=== PATIENT | male | born 1960 | race African-American/Black ===

== ENCOUNTER 2018-01-08 11:18 | Emergency (ER) | payer MEDICAID ==
[~2018-01-08] VITALS: Ht 175.3 cm; Wt 82.0 kg
[2018-01-08 11:23] VITALS: BP 137/72
== END 2018-01-08 14:35 | disposition home or self-care (01) ==
LOC: ER 11:18
DX: Z45.89 Encounter for adjustment and management of other implanted devices (principal)
CPT/HCPCS: 99282; Z7610; A4315

== ENCOUNTER 2019-09-07 16:01 | Emergency (ER) | payer MEDICAID ==
[~2019-09-07] VITALS: Ht 175.3 cm; Wt 80.0 kg
[2019-09-07 17:56] VITALS: BP 145/80
== END 2019-09-07 17:57 | disposition home or self-care (01) ==
LOC: ER 16:01
DX: T83.021A Displacement of indwelling urethral catheter, initial encounter (principal); N40.1 Benign prostatic hyperplasia with lower urinary tract symptoms; Y73.8 Miscellaneous gastroenterology and urology devices associated with adverse incidents, not elsewhere classified; Y92.018 Other place in single-family (private) house as the place of occurrence of the external cause
CPT/HCPCS: 51705; 99284

== ENCOUNTER 2020-02-18 15:24 | Emergency (ER) | payer MEDICAID ==
[~2020-02-18] VITALS: Ht 180.3 cm; Wt 87.0 kg
[2020-02-18 17:12] VITALS: BP 148/74
== END 2020-02-18 18:00 | disposition home or self-care (01) ==
LOC: ER 15:24
DX: Z46.6 Encounter for fitting and adjustment of urinary device (principal)
CPT/HCPCS: 99284

== ENCOUNTER 2020-04-25 16:41 | Emergency (ER) | payer MEDICAID ==
[~2020-04-25] VITALS: Ht 175.3 cm; Wt 79.0 kg
[2020-04-25 20:13] VITALS: BP 154/71
== END 2020-04-25 20:13 | disposition home or self-care (01) ==
LOC: ER 16:41
DX: T83.028A Displacement of other urinary catheter, initial encounter (principal); Y82.8 Other medical devices associated with adverse incidents; Y92.89 Other specified places as the place of occurrence of the external cause; R03.0 Elevated blood-pressure reading, without diagnosis of hypertension
CPT/HCPCS: 99283

== ENCOUNTER 2020-12-12 20:08 | Emergency (ER) | payer MEDICAID ==
[~2020-12-12] VITALS: Ht 175.3 cm; Wt 85.0 kg
[2020-12-12 20:11] VITALS: BP 154/75
== END 2020-12-12 21:00 | disposition left against medical advice (07) ==
LOC: ER 20:08
DX: Z53.21 Procedure and treatment not carried out due to patient leaving prior to being seen by health care provider (principal)

== ENCOUNTER 2021-04-16 22:04 | Emergency (ER) | payer MEDICAID ==
[~2021-04-16] VITALS: Ht 175.3 cm; Wt 79.0 kg
[~2021-04-16 22:04] MED LIST: IBUP-2029 MT; ONDA4TAB5 MT
[2021-04-16 22:27] VITALS: BP 131/77
== END 2021-04-17 00:52 | disposition home or self-care (01) ==
LOC: ER 22:04
DX: T83.018A Breakdown (mechanical) of other urinary catheter, initial encounter (principal); Y73.1 Therapeutic (nonsurgical) and rehabilitative gastroenterology and urology devices associated with adverse incidents; Y92.012 Bathroom of single-family (private) house as the place of occurrence of the external cause
CPT/HCPCS: 99281

== ENCOUNTER 2022-03-02 06:13 | Emergency (ER) | payer MEDICAID ==
[~2022-03-02] VITALS: Ht 182.9 cm; Wt 79.2 kg
[2022-03-02 06:30] VITALS: BP 150/88
[2022-03-02 07:23] LABS: BASOPHILS % 0.3 % (0.0-2.0); EOSINOPHILS % 2.6 % (0.0-5.0); HEMATOCRIT. 37.6 % (42.0-52.0); HEMOGLOBIN. 12.6 g/dL (14.0-18.0); LYMPHOCYTES % 13.1 % (20.0-50.0); MEAN CORPUSCULAR VOLUME 98.8 fL (80.0-94.0); MEAN PLATELET VOLUME 6.5 fl (7.4-10.4); PLATELET 327 x1000/uL (130-400); RED BLOOD CELL COUNT 3.81 mill/uL (4.7-6.1); RED CELL DISTRIBUTION WIDTH 14.8 % (11.6-14.6)
[2022-03-02 07:28] LABS: CHLORIDE 112 mEq/L (98-107)
[2022-03-02] MEDS ORDERED: CIPR-263 MT (07:53)
[2022-03-02 08:08] LABS: CLARITY URINE TURBID (CLEAR); COLOR URINE YELLOW (YELLOW); KETONES URINE NEGATIVE (NEGATIVE); LEUKOCYTE ESTERASE URINE 3+ (NEGATIVE); NITRITE URINE NEGATIVE (NEGATIVE); OCCULT BLOOD URINE 3+ (NEGATIVE); PH URINE 7.5 (4.5-8.0); PROTEIN URINE 3+ (NEGATIVE); SPECIFIC GRAVITY URINE 1.013 (1.005-1.030); UROBILINOGEN URINE 0.2 E.U./dL (0.2-1.0)
== END 2022-03-02 08:31 | disposition home or self-care (01) ==
LOC: ER 06:29
DX: T83.091A Other mechanical complication of indwelling urethral catheter, initial encounter (principal); Y73.8 Miscellaneous gastroenterology and urology devices associated with adverse incidents, not elsewhere classified; R03.0 Elevated blood-pressure reading, without diagnosis of hypertension; Y92.012 Bathroom of single-family (private) house as the place of occurrence of the external cause; N39.0 Urinary tract infection, site not specified
CPT/HCPCS: 36415; 80053; 81003; 85025; 99283

== ENCOUNTER 2022-06-23 11:15 | Inpatient (IN) | payer MEDICAID ==
[~2022-06-23] VITALS: Ht 175.3 cm; Wt 75.4 kg
[~2022-06-23 11:15] MED LIST changes: +CIPR-263 MT
[2022-06-23 12:37] LABS: HEMATOCRIT. 29.4 % (42.0-52.0); MEAN CORPUSCULAR HEMOGLOBIN 31.5 pg (28.0-32.0); MEAN CORPUSCULAR VOLUME 92.6 fL (80.0-94.0); MEAN PLATELET VOLUME 7.1 fl (7.4-10.4); PLATELET 303 x1000/uL (130-400); RED BLOOD CELL COUNT 3.18 mill/uL (4.7-6.1); RED CELL DISTRIBUTION WIDTH 16.3 % (11.6-14.6)
[2022-06-23 13:07] LABS: CHLORIDE 101 mEq/L (98-107)
[2022-06-23 13:21] LABS: INR 1.4; PROTHROMBIN TIME 14.8 sec (9.6-11.0)
[2022-06-23 14:44] LABS: PLATELET ESTIMATE NORMAL
[2022-06-23] MEDS ORDERED: PIPERACILLIN/TAZ 3.375G PREMIX 50 ML IV ONE (15:15)
[2022-06-23] MEDS ORDERED: VANCOMYCIN 1G PREMIX 200 ML IV ONE (15:15)
[2022-06-23] MEDS ORDERED: SODIUM CHLORIDE 0.9% 1000ML BAG (SEPSIS BOLUS) IV ONE (15:15)
[2022-06-23] MEDS ORDERED: CLINDAMYCIN 600 MG in DEXTROSE 5% WATER 50 ML IV ONE (15:45)
[2022-06-23] MEDS ORDERED: CLINDAMYCIN 600MG PREMIX 50 ML IV NR (16:00)
[2022-06-23] MEDS ORDERED: NALOXONE HCL 0.4MG/ML VIAL IV PRN (20:15)
[2022-06-23] MEDS: MORPHINE SULFATE 2 MG/ML CPJ (NOT FOR IM USE) IV PRN (20:41)
[2022-06-23] MEDS: ONDANSETRON HCL 4MG/2ML INJ IV PRN (20:41)
[2022-06-23] MEDS ORDERED: VANCOMYCIN 500MG PREMIX 100 ML IV NR (21:00)
[2022-06-23] MEDS ORDERED: SODIUM CHL 0.9% + KCL 20MEQ/L 1,000 ML IV SCH (22:00)
[2022-06-23] MEDS ORDERED: NA PHOS,M-B/NA PHOS,DI-BA ENEMA 118ML PR NR (22:00)
[2022-06-23] MEDS: PIPERACILLIN/TAZ 3.375G PREMIX 50 ML IV SCH (23:05)
[2022-06-23] MEDS: SODIUM CHL 0.9% + KCL 20MEQ/L 1,000 ML IV SCH (23:06)
[2022-06-23] MEDS ORDERED: PIPERACILLIN/TAZOBACTAM 3.375GM/50ML PREMIX IV SCH (23:25)
[2022-06-23] MEDS ORDERED: BISACODYL 10MG SUPP PR NR (23:45)
[2022-06-24] MEDS: MORPHINE SULFATE 2 MG/ML CPJ (NOT FOR IM USE) IV PRN ×3 (04:15→09:11)
[2022-06-24 04:23] VITALS: BP 135/71
[2022-06-24] MEDS: CLINDAMYCIN 300 MG PREMIX 50 ML IV SCH ×2 (05:26→17:29)
[2022-06-24] MEDS: PIPERACILLIN/TAZ 3.375G PREMIX 50 ML IV SCH (05:56)
[2022-06-24 08:00] VITALS: BP 128/79
[2022-06-24] MEDS ORDERED: CLINDAMYCIN 300 MG in DEXTROSE 5% WATER 50 ML IV SCH (09:00)
[2022-06-24] MEDS: ONDANSETRON HCL 4MG/2ML INJ IV PRN (09:10)
[2022-06-24] MEDS: SODIUM CHL 0.9% + KCL 20MEQ/L 1,000 ML IV SCH ×3 (09:12→22:39)
[2022-06-24 10:00] VITALS: BP 127/73
[2022-06-24 10:52] LABS: HEMATOCRIT. 31.7 % (42.0-52.0); HEMOGLOBIN. 10.5 g/dL (14.0-18.0); MEAN CORPUSCULAR HEMOGLOBIN 31.1 pg (28.0-32.0); MEAN CORPUSCULAR VOLUME 94.3 fL (80.0-94.0); MEAN PLATELET VOLUME 7.3 fl (7.4-10.4); PLATELET 338 x1000/uL (130-400); RED BLOOD CELL COUNT 3.36 mill/uL (4.7-6.1); RED CELL DISTRIBUTION WIDTH 16.4 % (11.6-14.6)
[2022-06-24 12:00] VITALS: BP 127/71
[2022-06-24] MEDS ORDERED: LIDOCAINE HCL 1% 10 MG/ML 10ML VIAL ONE (13:18)
[2022-06-24] MEDS ORDERED: SUCCINYLCHOLINE CHLORIDE 200MG/10ML IV ONE (13:18)
[2022-06-24] MEDS ORDERED: FENTANYL CITRATE/PF 50MCG/ML 2ML VIAL ONE (13:19)
[2022-06-24] MEDS ORDERED: PROPOFOL 200MG/20ML VIAL IV ONE (13:19)
[2022-06-24 13:31] LABS: PLATELET ESTIMATE NORMAL
[2022-06-24] MEDS ORDERED: POLYMYXIN B SULFATE 500000 UNITS/VIAL ONE (13:34)
[2022-06-24] MEDS ORDERED: VANCOMYCIN HCL 1 GM/VIAL ONE (13:34)
[2022-06-24] MEDS ORDERED: GENTAMICIN SULF 40MG/ML 2ML VIAL ONE ×2 (13:35)
[2022-06-24] MEDS ORDERED: SODIUM HYPOCHLORITE (0.25%) 480ML SOLUTION (HALF STRENGTH) TOP PRN (13:45)
[2022-06-24] MEDS ORDERED: HYDROMORPHONE HCL/PF 2MG/ML CPJ ONE (15:00)
[2022-06-24] MEDS: PIPERACILLIN/TAZOBACTAM 3.375 G in DEXTROSE 5% WATER 50 ML IV SCH (19:43)
[2022-06-24 20:00] VITALS: BP 123/75
[2022-06-24 20:15] VITALS: BP 123/75
[2022-06-24] MEDS ORDERED: VANCOMYCIN 500MG PREMIX 100 ML IV NR (21:00)
[2022-06-24 21:53] LABS: CLARITY URINE TURBID (CLEAR); COLOR URINE ORANGE (YELLOW); KETONES URINE NEGATIVE (NEGATIVE); LEUKOCYTE ESTERASE URINE 3+ (NEGATIVE); NITRITE URINE NEGATIVE (NEGATIVE); OCCULT BLOOD URINE 3+ (NEGATIVE); PH URINE 8.5 (4.5-8.0); PROTEIN URINE 3+ (NEGATIVE); SPECIFIC GRAVITY URINE 1.014 (1.005-1.030)
[2022-06-24 22:12] LABS: *AMPHETAMINES SCREEN URINE NEGATIVE (NEGATIVE); *BARBITURATES SCREEN URINE NEGATIVE (NEGATIVE); *BENZODIAZEPINES SCREEN URINE NEGATIVE (NEGATIVE); *COCAINE SCREEN URINE PRESUMTIVE POSITIVE (NEGATIVE); CANNABINOID URINE SCREEN NEGATIVE (NEGATIVE); METHADONE URINE SCREEN NEGATIVE (NEGATIVE); OPIATES URINE SCREEN PRESUMTIVE POSITIVE (NEGATIVE); PHENCYCLIDINE URINE SCREEN NEGATIVE (NEGATIVE)
[2022-06-25] VITALS: BP 130/79
[2022-06-25 04:00] VITALS: BP 117/74
[2022-06-25] MEDS: CLINDAMYCIN 300 MG PREMIX 50 ML IV SCH (05:50)
[2022-06-25] MEDS: SODIUM CHL 0.9% + KCL 20MEQ/L 1,000 ML IV SCH (05:50)
[2022-06-25 06:20] LABS: HEMATOCRIT. 26.2 % (42.0-52.0); HEMOGLOBIN. 8.7 g/dL (14.0-18.0); MEAN CORPUSCULAR HEMOGLOBIN 31.4 pg (28.0-32.0); MEAN CORPUSCULAR VOLUME 93.9 fL (80.0-94.0); MEAN PLATELET VOLUME 7.3 fl (7.4-10.4); PLATELET 337 x1000/uL (130-400); RED BLOOD CELL COUNT 2.79 mill/uL (4.7-6.1); RED CELL DISTRIBUTION WIDTH 16.2 % (11.6-14.6)
[2022-06-25 08:00] VITALS: BP 136/86
[2022-06-25] MEDS: PIPERACILLIN/TAZOBACTAM 3.375 G in DEXTROSE 5% WATER 50 ML IV SCH ×2 (08:47→21:12)
[2022-06-25 12:00] VITALS: BP 132/77
[2022-06-25] MEDS: SODIUM CHLORIDE 0.45% 1,000 ML IV SCH (13:44)
[2022-06-25 15:26] LABS: PLATELET ESTIMATE NORMAL
[2022-06-25 16:00] VITALS: BP 148/74
[2022-06-25 20:00] VITALS: BP 137/80
[2022-06-25] MEDS: MORPHINE SULFATE 2 MG/ML CPJ (NOT FOR IM USE) IV PRN (20:29)
[2022-06-25] MEDS: CLINDAMYCIN 600MG PREMIX 50 ML IV SCH (20:30)
[2022-06-26] VITALS: BP 124/74
[2022-06-26] MEDS: SODIUM CHLORIDE 0.45% 1,000 ML IV SCH ×2 (03:00→14:58)
[2022-06-26] MEDS: MORPHINE SULFATE 2 MG/ML CPJ (NOT FOR IM USE) IV PRN ×3 (03:07→22:24)
[2022-06-26 04:00] VITALS: BP 153/85
[2022-06-26] MEDS: CLINDAMYCIN 600MG PREMIX 50 ML IV SCH ×2 (05:40→13:22)
[2022-06-26 06:48] LABS: HEMATOCRIT. 25.2 % (42.0-52.0); HEMOGLOBIN. 8.4 g/dL (14.0-18.0); MEAN CORPUSCULAR HEMOGLOBIN 31.1 pg (28.0-32.0); MEAN CORPUSCULAR VOLUME 93.8 fL (80.0-94.0); MEAN PLATELET VOLUME 7.5 fl (7.4-10.4); PLATELET 346 x1000/uL (130-400); RED BLOOD CELL COUNT 2.69 mill/uL (4.7-6.1); RED CELL DISTRIBUTION WIDTH 16.5 % (11.6-14.6)
[2022-06-26 08:00] VITALS: BP 134/79
[2022-06-26 09:37] LABS: CREATINE KINASE 18 IU/L (39-308)
[2022-06-26] MEDS ORDERED: VANCOMYCIN 750MG PREMIX 150 ML IV SCH (10:00)
[2022-06-26] MEDS: PIPERACILLIN/TAZOBACTAM 3.375 G in DEXTROSE 5% WATER 50 ML IV SCH ×2 (10:29→22:57)
[2022-06-26] MEDS: SODIUM BICARBONATE 650 MG TABLET PO SCH ×3 (10:30→16:38)
[2022-06-26 12:00] VITALS: BP 149/80
[2022-06-26 14:29] LABS: PLATELET ESTIMATE NORMAL
[2022-06-26 16:00] VITALS: BP 139/79
[2022-06-26 20:00] VITALS: BP 143/80
[2022-06-26] MEDS: SODIUM HYPOCHLORITE (0.25%) 480ML SOLUTION (HALF STRENGTH) TOP SCH (22:24)
[2022-06-27] VITALS: BP 133/84
[2022-06-27 04:00] VITALS: BP 152/84
[2022-06-27] MEDS: SODIUM CHLORIDE 0.45% 1,000 ML IV SCH ×2 (06:00→16:58)
[2022-06-27 08:20] VITALS: BP 131/85
[2022-06-27 09:37] LABS: HEMATOCRIT. 26.3 % (42.0-52.0); HEMOGLOBIN. 8.9 g/dL (14.0-18.0); MEAN CORPUSCULAR HEMOGLOBIN 31.4 pg (28.0-32.0); MEAN PLATELET VOLUME 7.5 fl (7.4-10.4); PLATELET 445 x1000/uL (130-400); RED BLOOD CELL COUNT 2.83 mill/uL (4.7-6.1); RED CELL DISTRIBUTION WIDTH 16.7 % (11.6-14.6)
[2022-06-27 09:41] LABS: PLATELET ESTIMATE SLIGHTLY INCREASED
[2022-06-27] MEDS: SODIUM BICARBONATE 650 MG TABLET PO SCH ×3 (09:57→16:57)
[2022-06-27] MEDS: PIPERACILLIN/TAZOBACTAM 3.375 G in DEXTROSE 5% WATER 50 ML IV SCH ×2 (09:57→20:51)
[2022-06-27] MEDS: SODIUM HYPOCHLORITE (0.25%) 480ML SOLUTION (HALF STRENGTH) TOP SCH ×2 (09:58→20:51)
[2022-06-27] MEDS: MORPHINE SULFATE 2 MG/ML CPJ (NOT FOR IM USE) IV PRN (09:59)
[2022-06-27 12:09] VITALS: BP 134/79
[2022-06-27 16:00] VITALS: BP 134/93
[2022-06-27 20:00] VITALS: BP 146/82
[2022-06-28] VITALS: BP 150/83
[2022-06-28 04:00] VITALS: BP 140/79
[2022-06-28 06:45] LABS: BASOPHILS % 0.2 % (0.0-2.0); EOSINOPHILS % 1.9 % (0.0-5.0); HEMATOCRIT. 24.6 % (42.0-52.0); HEMOGLOBIN. 8.3 g/dL (14.0-18.0); LYMPHOCYTES % 7.7 % (20.0-50.0); MEAN CORPUSCULAR HEMOGLOBIN 31.3 pg (28.0-32.0); MEAN CORPUSCULAR VOLUME 92.8 fL (80.0-94.0); MEAN PLATELET VOLUME 7.6 fl (7.4-10.4); MONOCYTES % 7.8 % (2.0-8.0); NEUTROPHILS % 82.4 % (40.0-76.0); PLATELET 494 x1000/uL (130-400); RED BLOOD CELL COUNT 2.65 mill/uL (4.7-6.1); RED CELL DISTRIBUTION WIDTH 16.2 % (11.6-14.6)
[2022-06-28 08:00] VITALS: BP 141/87
[2022-06-28] MEDS: SODIUM BICARBONATE 650 MG TABLET PO SCH ×3 (09:43→17:20)
[2022-06-28] MEDS: PIPERACILLIN/TAZOBACTAM 3.375 G in DEXTROSE 5% WATER 50 ML IV SCH ×2 (09:43→21:01)
[2022-06-28] MEDS: SODIUM CHLORIDE 0.45% 1,000 ML IV SCH ×2 (09:45→21:00)
[2022-06-28] MEDS: SODIUM HYPOCHLORITE (0.25%) 480ML SOLUTION (HALF STRENGTH) TOP SCH ×2 (09:54→21:39)
[2022-06-28] MEDS ORDERED: DOCUSATE SODIUM 250MG CAPSULE PO SCH (11:15)
[2022-06-28 12:00] VITALS: BP 146/79
[2022-06-28] MEDS ORDERED: VANCOMYCIN 750MG PREMIX 150 ML IV SCH (12:00)
[2022-06-28] MEDS: MORPHINE SULFATE 2 MG/ML CPJ (NOT FOR IM USE) IV PRN ×2 (13:43→19:32)
[2022-06-28 16:00] VITALS: BP 139/89
[2022-06-28] MEDS ORDERED: SENNOSIDES 8.6MG TABLET PO PRN (19:15)
[2022-06-28 20:00] VITALS: BP 141/83
[2022-06-29] VITALS: BP 130/75
[2022-06-29] MEDS: PHENYLEPH/PRAMOXIN/GLYCR/PET RECTAL CREAM 26GM PR SCH ×4 (00:51→17:08)
[2022-06-29 04:00] VITALS: BP 129/72
[2022-06-29 07:47] LABS: BASOPHILS % 0.2 % (0.0-2.0); EOSINOPHILS % 2.3 % (0.0-5.0); HEMATOCRIT. 25.7 % (42.0-52.0); HEMOGLOBIN. 8.5 g/dL (14.0-18.0); LYMPHOCYTES % 7.9 % (20.0-50.0); MEAN CORPUSCULAR HEMOGLOBIN 30.8 pg (28.0-32.0); MEAN CORPUSCULAR VOLUME 93.2 fL (80.0-94.0); MEAN PLATELET VOLUME 7.5 fl (7.4-10.4); MONOCYTES % 7.3 % (2.0-8.0); NEUTROPHILS % 82.3 % (40.0-76.0); PLATELET 638 x1000/uL (130-400); RED BLOOD CELL COUNT 2.76 mill/uL (4.7-6.1); RED CELL DISTRIBUTION WIDTH 16.7 % (11.6-14.6)
[2022-06-29 08:00] VITALS: BP 127/83
[2022-06-29] MEDS: SODIUM BICARBONATE 650 MG TABLET PO SCH ×3 (09:51→17:07)
[2022-06-29] MEDS: PIPERACILLIN/TAZOBACTAM 3.375 G in DEXTROSE 5% WATER 50 ML IV SCH ×2 (09:51→20:35)
[2022-06-29] MEDS: DOCUSATE SODIUM 250MG CAPSULE PO SCH (09:51)
[2022-06-29] MEDS: SODIUM CHLORIDE 0.45% 1,000 ML IV SCH ×2 (09:52→23:40)
[2022-06-29] MEDS: SODIUM HYPOCHLORITE (0.25%) 480ML SOLUTION (HALF STRENGTH) TOP SCH ×2 (09:53→20:36)
[2022-06-29] MEDS ORDERED: SODIUM POLYSTYRENE SULFONATE 15 G/60 ML BOT PO NR (11:10)
[2022-06-29 12:00] VITALS: BP 140/85
[2022-06-29 16:00] VITALS: BP 128/74
[2022-06-29 20:00] VITALS: BP 135/73
[2022-06-30] VITALS: BP 134/68
[2022-06-30] MEDS: PHENYLEPH/PRAMOXIN/GLYCR/PET RECTAL CREAM 26GM PR SCH ×5 (00:14→23:49)
[2022-06-30 04:00] VITALS: BP 118/64
[2022-06-30 08:00] VITALS: BP 134/64
[2022-06-30] MEDS ORDERED: VANCOMYCIN 750MG PREMIX 150 ML IV SCH ×2 (09:00→11:00)
[2022-06-30] MEDS: DOCUSATE SODIUM 250MG CAPSULE PO SCH (09:55)
[2022-06-30] MEDS: SODIUM BICARBONATE 650 MG TABLET PO SCH ×3 (09:55→17:58)
[2022-06-30] MEDS: SODIUM HYPOCHLORITE (0.25%) 480ML SOLUTION (HALF STRENGTH) TOP SCH ×2 (10:42→21:29)
[2022-06-30] MEDS: PIPERACILLIN/TAZOBACTAM 3.375 G in DEXTROSE 5% WATER 50 ML IV SCH ×2 (10:42→21:29)
[2022-06-30 12:00] VITALS: BP 127/76
[2022-06-30] MEDS ORDERED: NALOXONE HCL 0.4MG/ML VIAL IV PRN (12:45)
[2022-06-30] MEDS: HYDROCODONE/ACETAMINOPHEN 10/325MG TABLET PO PRN (13:29)
[2022-06-30 16:00] VITALS: BP 124/71
[2022-06-30] MEDS ORDERED: HYDROCORTISONE ACETATE 25MG SUPP PR SCH (17:00)
[2022-06-30] MEDS: SODIUM CHLORIDE 0.45% 1,000 ML IV SCH (17:58)
[2022-06-30 20:00] VITALS: BP 113/74
[2022-07-01] VITALS: BP 133/71
[2022-07-01 04:00] VITALS: BP 126/72
[2022-07-01] MEDS: PHENYLEPH/PRAMOXIN/GLYCR/PET RECTAL CREAM 26GM PR SCH ×4 (05:15→23:40)
[2022-07-01 06:13] LABS: BASOPHILS % 0.4 % (0.0-2.0); EOSINOPHILS % 2.3 % (0.0-5.0); HEMATOCRIT. 22.3 % (42.0-52.0); HEMOGLOBIN. 7.3 g/dL (14.0-18.0); LYMPHOCYTES % 9.1 % (20.0-50.0); MEAN CORPUSCULAR HEMOGLOBIN 30.6 pg (28.0-32.0); MEAN CORPUSCULAR VOLUME 93.7 fL (80.0-94.0); MEAN PLATELET VOLUME 7.3 fl (7.4-10.4); MONOCYTES % 6.2 % (2.0-8.0); PLATELET 687 x1000/uL (130-400); RED BLOOD CELL COUNT 2.38 mill/uL (4.7-6.1); RED CELL DISTRIBUTION WIDTH 16.7 % (11.6-14.6)
[2022-07-01 08:00] VITALS: BP 106/70
[2022-07-01] MEDS: PIPERACILLIN/TAZOBACTAM 3.375 G in DEXTROSE 5% WATER 50 ML IV SCH (09:26)
[2022-07-01] MEDS: DOCUSATE SODIUM 250MG CAPSULE PO SCH (09:26)
[2022-07-01] MEDS: SODIUM HYPOCHLORITE (0.25%) 480ML SOLUTION (HALF STRENGTH) TOP SCH ×2 (09:27→21:36)
[2022-07-01] MEDS: HYDROCODONE/ACETAMINOPHEN 10/325MG TABLET PO PRN ×2 (09:42→18:36)
[2022-07-01 12:22] VITALS: BP 115/70
[2022-07-01] MEDS ORDERED: VANCOMYCIN 500MG PREMIX 100 ML IV SCH (16:00)
[2022-07-01 16:05] VITALS: BP 128/74
[2022-07-01] MEDS: SODIUM CHLORIDE 0.45% 1,000 ML IV SCH (16:25)
[2022-07-01 18:15] LABS: HEMATOCRIT 23.8 % (42.0-52.0); HEMOGLOBIN 7.8 g/dL (14.0-18.0)
[2022-07-01 20:00] VITALS: BP 119/65
[2022-07-01] MEDS: AMPICILLIN SOD/SULBACTAM NA 3 G in SODIUM CHLORIDE 0.9% 100 ML IV SCH (20:06)
[2022-07-02] VITALS: BP 142/83
[2022-07-02] MEDS: HYDROCODONE/ACETAMINOPHEN 10/325MG TABLET PO PRN ×2 (01:10→17:23)
[2022-07-02 04:00] VITALS: BP 118/55
[2022-07-02] MEDS: AMPICILLIN SOD/SULBACTAM NA 3 G in SODIUM CHLORIDE 0.9% 100 ML IV SCH ×2 (05:05→17:20)
[2022-07-02] MEDS: SODIUM CHLORIDE 0.45% 1,000 ML IV SCH ×2 (05:05→17:20)
[2022-07-02] MEDS: PHENYLEPH/PRAMOXIN/GLYCR/PET RECTAL CREAM 26GM PR SCH ×3 (05:05→17:20)
[2022-07-02 06:58] LABS: BASOPHILS % 0.6 % (0.0-2.0); EOSINOPHILS % 2.3 % (0.0-5.0); HEMATOCRIT. 21.4 % (42.0-52.0); HEMOGLOBIN. 7.3 g/dL (14.0-18.0); LYMPHOCYTES % 9.9 % (20.0-50.0); MEAN CORPUSCULAR HEMOGLOBIN 31.6 pg (28.0-32.0); MEAN CORPUSCULAR VOLUME 93.3 fL (80.0-94.0); MEAN PLATELET VOLUME 6.9 fl (7.4-10.4); MONOCYTES % 5.8 % (2.0-8.0); NEUTROPHILS % 81.4 % (40.0-76.0); PLATELET 719 x1000/uL (130-400); RED CELL DISTRIBUTION WIDTH 16.6 % (11.6-14.6)
[2022-07-02 07:08] LABS: PHOSPHORUS 5.1 mg/dL (2.5-4.9)
[2022-07-02 08:00] VITALS: BP 107/56
[2022-07-02] MEDS: SODIUM HYPOCHLORITE (0.25%) 480ML SOLUTION (HALF STRENGTH) TOP SCH ×2 (09:00→22:34)
[2022-07-02] MEDS: DOCUSATE SODIUM 250MG CAPSULE PO SCH (09:00)
[2022-07-02 12:00] VITALS: BP 139/78
[2022-07-02 16:00] VITALS: BP 135/79
[2022-07-02 17:18] LABS: CREATINE KINASE 40 IU/L (39-308)
[2022-07-02 20:00] VITALS: BP 125/70
[2022-07-03] VITALS: BP 134/77
[2022-07-03] MEDS: PHENYLEPH/PRAMOXIN/GLYCR/PET RECTAL CREAM 26GM PR SCH ×4 (00:48→17:46)
[2022-07-03] MEDS: HYDROCODONE/ACETAMINOPHEN 10/325MG TABLET PO PRN ×3 (00:48→13:41)
[2022-07-03 04:00] VITALS: BP_SYST 132; BP_SYST 147; BP_DIAS 62; BP_DIAS 70
[2022-07-03] MEDS: AMPICILLIN SOD/SULBACTAM NA 3 G in SODIUM CHLORIDE 0.9% 100 ML IV SCH ×2 (04:51→17:46)
[2022-07-03 06:49] LABS: BASOPHILS % 1.1 % (0.0-2.0); EOSINOPHILS % 3.7 % (0.0-5.0); HEMATOCRIT. 22.7 % (42.0-52.0); HEMOGLOBIN. 7.5 g/dL (14.0-18.0); LYMPHOCYTES % 11.9 % (20.0-50.0); MEAN CORPUSCULAR VOLUME 93.5 fL (80.0-94.0); MEAN PLATELET VOLUME 7.2 fl (7.4-10.4); NEUTROPHILS % 77.3 % (40.0-76.0); PLATELET 787 x1000/uL (130-400); RED BLOOD CELL COUNT 2.43 mill/uL (4.7-6.1); RED CELL DISTRIBUTION WIDTH 16.7 % (11.6-14.6)
[2022-07-03 08:00] VITALS: BP 111/58
[2022-07-03] MEDS: DOCUSATE SODIUM 250MG CAPSULE PO SCH (09:18)
[2022-07-03] MEDS: SODIUM CHLORIDE 0.45% 1,000 ML IV SCH ×2 (09:18→20:42)
[2022-07-03] MEDS: SODIUM HYPOCHLORITE (0.25%) 480ML SOLUTION (HALF STRENGTH) TOP SCH ×2 (09:19→20:41)
[2022-07-03] MEDS: VANCOMYCIN 500MG PREMIX 100 ML IV SCH (09:52)
[2022-07-03 12:00] VITALS: BP 104/58
[2022-07-03] MEDS ORDERED: LIDOCAINE HCL 2% JELLY 5ML TOP NR (14:30)
[2022-07-03 16:00] VITALS: BP 108/58
[2022-07-03 20:00] VITALS: BP 129/76
[2022-07-04] VITALS: BP 107/52
[2022-07-04] MEDS: HYDROCODONE/ACETAMINOPHEN 10/325MG TABLET PO PRN ×2 (00:38→16:13)
[2022-07-04 04:00] VITALS: BP 132/82
[2022-07-04] MEDS: PHENYLEPH/PRAMOXIN/GLYCR/PET RECTAL CREAM 26GM PR SCH ×4 (05:45→17:02)
[2022-07-04] MEDS: AMPICILLIN SOD/SULBACTAM NA 3 G in SODIUM CHLORIDE 0.9% 100 ML IV SCH ×2 (05:45→17:03)
[2022-07-04 08:00] VITALS: BP 140/83
[2022-07-04] MEDS ORDERED: LIDOCAINE HCL/PF 1% 10 MG/ML 5ML VIAL ONE (08:18)
[2022-07-04] MEDS: DOCUSATE SODIUM 250MG CAPSULE PO SCH (09:45)
[2022-07-04] MEDS: SODIUM HYPOCHLORITE (0.25%) 480ML SOLUTION (HALF STRENGTH) TOP SCH (09:45)
[2022-07-04] MEDS: SODIUM CHLORIDE 0.45% 1,000 ML IV SCH (09:46)
[2022-07-04 12:00] VITALS: BP 134/67
[2022-07-04 16:00] VITALS: BP 144/79
[2022-07-04] MEDS: HYDROCORTISONE ACETATE 25MG SUPP PR PRN (17:03)
[2022-07-04 18:05] LABS: BASOPHILS % 1.1 % (0.0-2.0); EOSINOPHILS % 4.6 % (0.0-5.0); LYMPHOCYTES % 13.4 % (20.0-50.0); MEAN CORPUSCULAR HEMOGLOBIN 31.7 pg (28.0-32.0); MEAN CORPUSCULAR VOLUME 94.3 fL (80.0-94.0); MEAN PLATELET VOLUME 7.1 fl (7.4-10.4); MONOCYTES % 5.7 % (2.0-8.0); NEUTROPHILS % 75.2 % (40.0-76.0); PLATELET 739 x1000/uL (130-400); RED CELL DISTRIBUTION WIDTH 16.4 % (11.6-14.6)
[2022-07-04 18:13] LABS: HEMATOCRIT. 20.8 % (42.0-52.0)
[2022-07-04 20:00] VITALS: BP 145/80
[2022-07-05] VITALS (10 sets, daily range): BP systolic 119–151; BP diastolic 70–89
[2022-07-05] MEDS: VANCOMYCIN 500MG PREMIX 100 ML IV SCH (00:47)
[2022-07-05] MEDS: SODIUM CHLORIDE 0.45% 1,000 ML IV SCH ×2 (00:47→12:05)
[2022-07-05] MEDS: PHENYLEPH/PRAMOXIN/GLYCR/PET RECTAL CREAM 26GM PR SCH ×4 (00:48→17:38)
[2022-07-05] MEDS: SODIUM HYPOCHLORITE (0.25%) 480ML SOLUTION (HALF STRENGTH) TOP SCH ×3 (00:48→20:24)
[2022-07-05] MEDS: AMPICILLIN SOD/SULBACTAM NA 3 G in SODIUM CHLORIDE 0.9% 100 ML IV SCH ×2 (06:18→16:40)
[2022-07-05] MEDS: HYDROCODONE/ACETAMINOPHEN 10/325MG TABLET PO PRN ×2 (06:29→16:41)
[2022-07-05 07:29] LABS: BASOPHILS % 1.8 % (0.0-2.0); EOSINOPHILS % 4.7 % (0.0-5.0); LYMPHOCYTES % 18.4 % (20.0-50.0); MEAN CORPUSCULAR HEMOGLOBIN 31.9 pg (28.0-32.0); MEAN CORPUSCULAR VOLUME 93.8 fL (80.0-94.0); MEAN PLATELET VOLUME 6.8 fl (7.4-10.4); MONOCYTES % 6.6 % (2.0-8.0); NEUTROPHILS % 68.5 % (40.0-76.0); PLATELET 711 x1000/uL (130-400); RED BLOOD CELL COUNT 2.21 mill/uL (4.7-6.1)
[2022-07-05 08:05] LABS: HEMATOCRIT. 20.7 % (42.0-52.0)
[2022-07-05] MEDS: DOCUSATE SODIUM 250MG CAPSULE PO SCH (08:52)
[2022-07-05] MEDS ORDERED: NALOXONE HCL 0.4MG/ML VIAL IV PRN (16:30)
[2022-07-05] MEDS ORDERED: VANCOMYCIN 750MG PREMIX 150 ML IV SCH (18:00)
[2022-07-06] VITALS: BP 136/75
[2022-07-06] MEDS: SODIUM CHLORIDE 0.45% 1,000 ML IV SCH ×2 (02:06→15:12)
[2022-07-06 04:00] VITALS: BP 144/81
[2022-07-06] MEDS: AMPICILLIN SOD/SULBACTAM NA 3 G in SODIUM CHLORIDE 0.9% 100 ML IV SCH ×2 (04:43→17:08)
[2022-07-06] MEDS: HYDROCODONE/ACETAMINOPHEN 10/325MG TABLET PO PRN ×2 (04:55→14:19)
[2022-07-06] MEDS: PHENYLEPH/PRAMOXIN/GLYCR/PET RECTAL CREAM 26GM PR SCH ×5 (05:01→23:48)
[2022-07-06] MEDS: HYDROCORTISONE ACETATE 25MG SUPP PR PRN (06:14)
[2022-07-06 08:00] VITALS: BP 137/75
[2022-07-06 08:01] LABS: BASOPHILS % 2.1 % (0.0-2.0); EOSINOPHILS % 4.8 % (0.0-5.0); HEMATOCRIT. 22.3 % (42.0-52.0); HEMOGLOBIN. 7.7 g/dL (14.0-18.0); LYMPHOCYTES % 13.1 % (20.0-50.0); MEAN CORPUSCULAR HEMOGLOBIN 31.6 pg (28.0-32.0); MEAN CORPUSCULAR VOLUME 91.4 fL (80.0-94.0); MEAN PLATELET VOLUME 6.9 fl (7.4-10.4); MONOCYTES % 7.1 % (2.0-8.0); NEUTROPHILS % 72.9 % (40.0-76.0); PLATELET 639 x1000/uL (130-400); RED BLOOD CELL COUNT 2.44 mill/uL (4.7-6.1); RED CELL DISTRIBUTION WIDTH 17.7 % (11.6-14.6)
[2022-07-06] MEDS: DOCUSATE SODIUM 250MG CAPSULE PO SCH (09:28)
[2022-07-06] MEDS: SODIUM HYPOCHLORITE (0.25%) 480ML SOLUTION (HALF STRENGTH) TOP SCH ×2 (09:28→22:00)
[2022-07-06 12:00] VITALS: BP 139/77
[2022-07-06 16:00] VITALS: BP 149/71
[2022-07-06 20:00] VITALS: BP 121/72
[2022-07-07] VITALS: BP 140/73
[2022-07-07 04:00] VITALS: BP 120/72
[2022-07-07] MEDS: PHENYLEPH/PRAMOXIN/GLYCR/PET RECTAL CREAM 26GM PR SCH ×3 (05:11→16:36)
[2022-07-07] MEDS: SODIUM CHLORIDE 0.45% 1,000 ML IV SCH ×2 (05:19→16:37)
[2022-07-07] MEDS: AMPICILLIN SOD/SULBACTAM NA 3 G in SODIUM CHLORIDE 0.9% 100 ML IV SCH ×2 (05:19→16:36)
[2022-07-07 07:53] LABS: BASOPHILS % 2.7 % (0.0-2.0); EOSINOPHILS % 4.8 % (0.0-5.0); HEMATOCRIT. 22.2 % (42.0-52.0); HEMOGLOBIN. 7.6 g/dL (14.0-18.0); LYMPHOCYTES % 16.6 % (20.0-50.0); MEAN CORPUSCULAR HEMOGLOBIN 31.8 pg (28.0-32.0); MEAN CORPUSCULAR VOLUME 92.3 fL (80.0-94.0); MEAN PLATELET VOLUME 6.8 fl (7.4-10.4); MONOCYTES % 7.6 % (2.0-8.0); NEUTROPHILS % 68.3 % (40.0-76.0); PLATELET 538 x1000/uL (130-400)
[2022-07-07 08:25] VITALS: BP 138/80
[2022-07-07 11:35] VITALS: BP 138/69
[2022-07-07] MEDS: DOCUSATE SODIUM 250MG CAPSULE PO SCH (13:06)
[2022-07-07] MEDS: HYDROCODONE/ACETAMINOPHEN 10/325MG TABLET PO PRN ×2 (13:07→23:02)
[2022-07-07] MEDS: SODIUM HYPOCHLORITE (0.25%) 480ML SOLUTION (HALF STRENGTH) TOP SCH ×2 (13:07→21:18)
[2022-07-07 16:28] VITALS: BP 128/77
[2022-07-07] MEDS ORDERED: VANCOMYCIN 750MG PREMIX 150 ML IV SCH (18:00)
[2022-07-07 20:00] VITALS: BP 145/79
[2022-07-07] MEDS ORDERED: EPOETIN ALFA-EPBX 4,000 UNIT/ML VIAL SUBCUT SCH (21:00)
[2022-07-08] VITALS: BP 143/80
[2022-07-08] MEDS: PHENYLEPH/PRAMOXIN/GLYCR/PET RECTAL CREAM 26GM PR SCH ×5 (00:13→21:41)
[2022-07-08 04:00] VITALS: BP 127/72
[2022-07-08] MEDS: AMPICILLIN SOD/SULBACTAM NA 3 G in SODIUM CHLORIDE 0.9% 100 ML IV SCH ×2 (04:55→19:33)
[2022-07-08 07:39] LABS: BASOPHILS % 2.5 % (0.0-2.0); EOSINOPHILS % 5.6 % (0.0-5.0); HEMATOCRIT. 21.7 % (42.0-52.0); HEMOGLOBIN. 7.4 g/dL (14.0-18.0); LYMPHOCYTES % 14.4 % (20.0-50.0); MEAN CORPUSCULAR HEMOGLOBIN 31.2 pg (28.0-32.0); MEAN CORPUSCULAR VOLUME 91.4 fL (80.0-94.0); MEAN PLATELET VOLUME 6.7 fl (7.4-10.4); NEUTROPHILS % 69.5 % (40.0-76.0); PLATELET 483 x1000/uL (130-400); RED BLOOD CELL COUNT 2.37 mill/uL (4.7-6.1); RED CELL DISTRIBUTION WIDTH 16.8 % (11.6-14.6)
[2022-07-08 08:00] VITALS: BP 122/67
[2022-07-08] MEDS: SODIUM HYPOCHLORITE (0.25%) 480ML SOLUTION (HALF STRENGTH) TOP SCH ×2 (09:00→21:41)
[2022-07-08] MEDS: DOCUSATE SODIUM 250MG CAPSULE PO SCH (09:04)
[2022-07-08] MEDS: SODIUM CHLORIDE 0.45% 1,000 ML IV SCH ×2 (09:05→21:40)
[2022-07-08] MEDS: HYDROCODONE/ACETAMINOPHEN 10/325MG TABLET PO PRN ×2 (09:05→21:42)
[2022-07-08 12:00] VITALS: BP 140/74
[2022-07-08 16:00] VITALS: BP 138/90
[2022-07-08 20:00] VITALS: BP 137/78
[2022-07-09] VITALS (12 sets, daily range): BP systolic 101–158; BP diastolic 65–96
[2022-07-09] MEDS: HYDROCODONE/ACETAMINOPHEN 10/325MG TABLET PO PRN ×3 (03:43→20:11)
[2022-07-09] MEDS: PHENYLEPH/PRAMOXIN/GLYCR/PET RECTAL CREAM 26GM PR SCH ×3 (06:00→17:52)
[2022-07-09 07:00] LABS: BASOPHILS % 2.5 % (0.0-2.0); EOSINOPHILS % 5.2 % (0.0-5.0); LYMPHOCYTES % 16.5 % (20.0-50.0); MEAN CORPUSCULAR HEMOGLOBIN 30.5 pg (28.0-32.0); MEAN CORPUSCULAR VOLUME 91.9 fL (80.0-94.0); MEAN PLATELET VOLUME 6.8 fl (7.4-10.4); MONOCYTES % 8.3 % (2.0-8.0); NEUTROPHILS % 67.5 % (40.0-76.0); PLATELET 384 x1000/uL (130-400); RED BLOOD CELL COUNT 2.25 mill/uL (4.7-6.1); RED CELL DISTRIBUTION WIDTH 16.9 % (11.6-14.6)
[2022-07-09 08:07] LABS: HEMATOCRIT. 20.6 % (42.0-52.0); HEMOGLOBIN. 6.8 g/dL (14.0-18.0)
[2022-07-09] MEDS: DOCUSATE SODIUM 250MG CAPSULE PO SCH ×2 (09:00→09:56)
[2022-07-09] MEDS: SODIUM HYPOCHLORITE (0.25%) 480ML SOLUTION (HALF STRENGTH) TOP SCH ×3 (09:56→21:05)
[2022-07-09] MEDS: SODIUM CHLORIDE 0.45% 1,000 ML IV SCH (12:06)
[2022-07-10] VITALS: BP 145/83
[2022-07-10] MEDS: SODIUM CHLORIDE 0.45% 1,000 ML IV SCH ×2 (00:09→13:00)
[2022-07-10] MEDS: PHENYLEPH/PRAMOXIN/GLYCR/PET RECTAL CREAM 26GM PR SCH ×5 (00:11→23:36)
[2022-07-10 04:00] VITALS: BP 109/81
[2022-07-10] MEDS: HYDROCODONE/ACETAMINOPHEN 10/325MG TABLET PO PRN ×2 (04:53→12:29)
[2022-07-10 06:27] LABS: BASOPHILS % 3.8 % (0.0-2.0); EOSINOPHILS % 6.8 % (0.0-5.0); HEMOGLOBIN. 7.8 g/dL (14.0-18.0); LYMPHOCYTES % 18.4 % (20.0-50.0); MEAN CORPUSCULAR HEMOGLOBIN 30.7 pg (28.0-32.0); MEAN CORPUSCULAR VOLUME 90.2 fL (80.0-94.0); MEAN PLATELET VOLUME 7.2 fl (7.4-10.4); MONOCYTES % 8.5 % (2.0-8.0); NEUTROPHILS % 62.5 % (40.0-76.0); PLATELET 334 x1000/uL (130-400); RED BLOOD CELL COUNT 2.56 mill/uL (4.7-6.1); RED CELL DISTRIBUTION WIDTH 17.3 % (11.6-14.6)
[2022-07-10 08:00] VITALS: BP 109/76
[2022-07-10] MEDS: DOCUSATE SODIUM 250MG CAPSULE PO SCH (08:43)
[2022-07-10] MEDS: SODIUM HYPOCHLORITE (0.25%) 480ML SOLUTION (HALF STRENGTH) TOP SCH ×2 (08:43→21:03)
[2022-07-10] MEDS ORDERED: HALOPERIDOL LACTATE 5MG/ML VIAL IM PRN (12:00)
[2022-07-10] MEDS ORDERED: MORPHINE SULFATE 2 MG/ML CPJ (NOT FOR IM USE) IV PRN (12:15)
[2022-07-10 16:00] VITALS: BP 141/80
[2022-07-10 20:00] VITALS: BP 141/79
[2022-07-10 21:30] LABS: CLARITY URINE CLOUDY (CLEAR); COLOR URINE RED (YELLOW); KETONES URINE NEGATIVE (NEGATIVE); LEUKOCYTE ESTERASE URINE 3+ (NEGATIVE); NITRITE URINE POSITIVE (NEGATIVE); OCCULT BLOOD URINE 2+ (NEGATIVE); PH URINE 5.5 (4.5-8.0); PROTEIN URINE 3+ (NEGATIVE); SPECIFIC GRAVITY URINE 1.011 (1.005-1.030); UROBILINOGEN URINE 0.2 E.U./dL (0.2-1.0)
[2022-07-11] VITALS: BP 146/91
[2022-07-11] MEDS: SODIUM CHLORIDE 0.45% 1,000 ML IV SCH ×2 (01:20→14:59)
[2022-07-11] MEDS: HYDROCODONE/ACETAMINOPHEN 10/325MG TABLET PO PRN ×2 (01:21→08:55)
[2022-07-11 04:00] VITALS: BP 129/73
[2022-07-11] MEDS: PHENYLEPH/PRAMOXIN/GLYCR/PET RECTAL CREAM 26GM PR SCH ×2 (05:33→12:35)
[2022-07-11 06:47] LABS: BASOPHILS % 1.5 % (0.0-2.0); EOSINOPHILS % 8.6 % (0.0-5.0); HEMATOCRIT. 25.1 % (42.0-52.0); HEMOGLOBIN. 8.5 g/dL (14.0-18.0); LYMPHOCYTES % 17.9 % (20.0-50.0); MEAN CORPUSCULAR HEMOGLOBIN 30.6 pg (28.0-32.0); MEAN CORPUSCULAR VOLUME 90.6 fL (80.0-94.0); MEAN PLATELET VOLUME 7.2 fl (7.4-10.4); MONOCYTES % 8.8 % (2.0-8.0); NEUTROPHILS % 63.2 % (40.0-76.0); PLATELET 323 x1000/uL (130-400); RED BLOOD CELL COUNT 2.77 mill/uL (4.7-6.1); RED CELL DISTRIBUTION WIDTH 16.7 % (11.6-14.6)
[2022-07-11 08:00] VITALS: BP 144/85
[2022-07-11] MEDS: SODIUM HYPOCHLORITE (0.25%) 480ML SOLUTION (HALF STRENGTH) TOP SCH (08:52)
[2022-07-11] MEDS: DOCUSATE SODIUM 250MG CAPSULE PO SCH (08:54)
[2022-07-11] MEDS ORDERED: LEVO250T74 MT (11:02)
[2022-07-11] MEDS ORDERED: HYDR25SU11 PR (11:02)
[2022-07-11] MEDS ORDERED: CEFTRIAXONE 1,000 MG in DEXTROSE 5% WATER 50 ML IV SCH (11:30)
[2022-07-11 12:00] VITALS: BP 132/75
[2022-07-11 15:35] VITALS: BP 132/75
== END 2022-07-11 16:55 | disposition home health service (06) | DRG 720 ==
LOC: ER 11:15 → MICUSO 17:33 → 5EST 06-24 04:54 → 7EST 06-24 16:15
PROVIDERS: ADMIT Internal Medicine; ATTEND Internal Medicine
PROC: 0JBB0ZZ Excision of Perineum Subcutaneous Tissue and Fascia, Open Approach (ICD-10-PCS; principal; 2022-06-24)
PROC: 0T2BX0Z Change Drainage Device in Bladder, External Approach (ICD-10-PCS; 2022-06-24)
PROC: 02HV33Z Insertion of Infusion Device into Superior Vena Cava, Percutaneous Approach (ICD-10-PCS; 2022-07-04)
PROC: B548ZZA Ultrasonography of Superior Vena Cava, Guidance (ICD-10-PCS; 2022-07-04)
PROC: 30233N1 Transfusion of Nonautologous Red Blood Cells into Peripheral Vein, Percutaneous Approach (ICD-10-PCS; 2022-07-05)
DX: A40.9 Streptococcal sepsis, unspecified (principal); N17.0 Acute kidney failure with tubular necrosis; M72.6 Necrotizing fasciitis; U07.1 COVID-19; E43 Unspecified severe protein-calorie malnutrition; E87.20 Acidosis, unspecified; G82.20 Paraplegia, unspecified; N49.3 Fournier gangrene; K40.20 Bilateral inguinal hernia, without obstruction or gangrene, not specified as recurrent; R65.20 Severe sepsis without septic shock; D64.9 Anemia, unspecified; I12.9 Hypertensive chronic kidney disease with stage 1 through stage 4 chronic kidney disease, or unspecified chronic kidney disease; N18.9 Chronic kidney disease, unspecified; K64.4 Residual hemorrhoidal skin tags; N21.0 Calculus in bladder; N31.9 Neuromuscular dysfunction of bladder, unspecified; N39.0 Urinary tract infection, site not specified; B95.62 Methicillin resistant Staphylococcus aureus infection as the cause of diseases classified elsewhere; F14.90 Cocaine use, unspecified, uncomplicated; Z68.24 Body mass index [BMI] 24.0-24.9, adult; Z79.899 Other long term (current) drug therapy
CPT/HCPCS: 36415; 36573; 74018; 74176; 80048; 80053; 80202; 80305; 81003; 82550; 82570; 83605; 83735; 84100; 84145; 84156; 84300; 85014; 85018; 85025; 85044; 86850; 86900; 86920; 87070; 87075; 87077; 87186; 87426; 93005; 99291; C1725; J0295; J0330; J0696; J0885; J1170; J1580; J1630; J2270; J2405; J2543; J2704; J3010; J3370; J3480; J3490; J7030; J7050; J7060; P9016

== ENCOUNTER 2023-03-27 10:00 | Emergency (ER) | payer MEDICAID, OTHER ==
[~2023-03-27] VITALS: Ht 177.8 cm; Wt 73.0 kg
[~2023-03-27 10:00] MED LIST changes: -CIPR-263 MT; +CLIN-194 MT; +GAUZ1BAN31 MT; +HYDR25SU11 PR; +LEVO250T74 MT; +POLY1BAN TP; +SULF1TAB48 MT; +[UNRECOGNIZED DRUG - CODE] IR
[2023-03-27 10:02] VITALS: O2SAT 99
[2023-03-27 10:49] LABS: BASOPHILS % 0.2 % (0.0-2.0); EOSINOPHILS % 0.9 % (0.0-5.0); HEMOGLOBIN. 12.3 g/dL (14.0-18.0); LYMPHOCYTES % 8.5 % (20.0-50.0); MEAN CORPUSCULAR HGB CONC 33.3 g/dL (31.0-37.0); MEAN CORPUSCULAR VOLUME 98.9 fL (80.0-94.0); MEAN PLATELET VOLUME 6.8 fl (7.4-10.4); MONOCYTES % 9.8 % (2.0-8.0); NEUTROPHILS % 80.6 % (40.0-76.0); PLATELET 303 x1000/uL (130-400); RED BLOOD CELL COUNT 3.74 mill/uL (4.7-6.1); RED CELL DISTRIBUTION WIDTH 14.2 % (11.6-14.6); WHITE BLOOD COUNT 7.6 x1000/uL (4.5-11.0)
[2023-03-27 10:57] LABS: INR 1.1; PROTHROMBIN TIME 11.4 sec (9.6-11.0)
[2023-03-27] MEDS ORDERED: MORPHINE SULFATE 4 MG/ML CPJ (NOT FOR IM USE) IV ONE ×2 (11:00→12:00)
[2023-03-27 11:04] LABS: CHLORIDE 111 mEq/L (98-107); INDEX HEMOLYSI 1 (1-3); INDEX ICTERIC 1 (1-4); INDEX LIPEMIC 1 (1-3); SODIUM 140 mEq/L (136-145)
[2023-03-27 11:15] LABS: ALANINE AMINOTRANSFERASE 27 IU/L (13-61); ALBUMIN 3.7 g/dL (3.4-5.0); ASPARTATE AMINOTRANSFERASE 29 IU/L (15-37); BILIRUBIN TOTAL 0.7 mg/dL (0.1-1.0); CALCIUM 9.4 mg/dL (8.5-10.1); CARBON DIOXIDE 24 mEq/L (21-32); CREATININE 1.5 mg/dL (0.6-1.3); GLUCOSE 133 mg/dL (70-105); PROTEIN TOTAL 8.5 g/dL (6.0-8.3); TROPONIN I HIGH SENSITIVITY 13 ng/L (<78); UREA NITROGEN BLOOD 15 mg/dL (7-21)
[2023-03-27 12:40] LABS: CLARITY URINE TURBID (CLEAR); COLOR URINE YELLOW (YELLOW); GLUCOSE URINE NEGATIVE (NEGATIVE); KETONES URINE NEGATIVE (NEGATIVE); LEUKOCYTE ESTERASE URINE 3+ (NEGATIVE); NITRITE URINE NEGATIVE (NEGATIVE); OCCULT BLOOD URINE 2+ (NEGATIVE); PH URINE >=9.0 (4.5-8.0); PROTEIN URINE 3+ (NEGATIVE); SPECIFIC GRAVITY URINE 1.013 (1.005-1.030); UROBILINOGEN URINE 0.2 E.U./dL (0.2-1.0)
[2023-03-27 12:59] LABS: BACTERIA URINE 4+; SQUAMOUS EPITHELIAL CELL URINE NONE SEEN /lpf (RARE/1+); YEAST URINE NONE SEEN
[2023-03-27] MEDS ORDERED: CEFTRIAXONE 1GM PREMIX 50 ML IV ONE (13:00)
[2023-03-27 15:00] VITALS: BP 159/81; PULSE 53; RESP 12; TEMP 98
== END 2023-03-27 15:09 | disposition short-term general hospital (02) ==
LOC: ER 10:00
DX: K85.90 Acute pancreatitis without necrosis or infection, unspecified (principal); N39.0 Urinary tract infection, site not specified; K62.3 Rectal prolapse; Z79.899 Other long term (current) drug therapy
CPT/HCPCS: 80053; 81003; 83690; 85025; 85610; 87086; 84484; 36415; 74176; 93005; 96365; 96375; 96376; 99285; J0696; J2270; Z7610 ×3; A4315